=== PATIENT | female | born 1990 | race Asian ===

== ENCOUNTER → 2017-07-29 | Outpatient (CLI) | payer OTHER ==
[2017-07-29 12:36] LABS: POTASSIUM 3.9 mmol/L (3.5-5.1)
[2017-07-29 12:37] LABS: BASO ABS # 0.06 K/uL (0-0.2); EOS % 1.3 %; EOS ABS # 0.08 K/uL (0-0.5); HEMATOCRIT 40.7 % (37-47); HEMOGLOBIN 13.5 g/dL (12.0-16.0); IG# 0.01 K/uL (0.00-0.02); LYMPH % 24.8 %; LYMPH ABS # 1.53 K/uL (1.2-3.4); MEAN CELL VOLUME 93.1 fL (80-100); MEAN CORPUSCULAR HEMOGLOBIN 30.9 pg (25-34); MEAN CORPUSCULAR HGB CONC 33.2 g/dl (32-36); MEAN PLATELET VOLUME 10.8 fL (7.4-10.4); MONO ABS # 0.37 K/uL (0.11-0.59); NEUT % 66.7 %; NEUT ABS # 4.12 K/uL (1.4-6.5); PLATELET COUNT 272 K/uL (130-400); RED CELL DISTRIBUTION WIDTH SD 47.4 fL (36.4-46.3); WHITE BLOOD COUNT 6.17 K/uL (4.8-10.8)
[2017-07-29 12:44] LABS: PTT PATIENT 26.4 SECONDS (21.0-31.0)
== END | disposition home or self-care (01) ==
LOC: C.LAB 10:23
DX: Z01.818 Encounter for other preprocedural examination (principal)